=== PATIENT | female | born 1940 | race Hispanic/Latino ===

== ENCOUNTER 2017-03-13 18:18 | Emergency (ER) | payer MEDICARE, MEDICAID ==
[2017-03-13] MEDS ORDERED: EPINEPHrine 1 mg/ml (1:1000) Inj ONE (18:22)
--- NOTE | 2017-03-13 18:27 | C.PDOC ---
Chief Complaint (Nursing): Cardiac Arrest Progress - Re-Evaluation Re-evaluation Note: 03/13/17 18:26 ASYSTOLE ON MONITOR. NO IMPROVE IN CONDITION SINCE ER ARRIVAL. TOD 1826 Disposition - Disposition Disposition: WITH WITHOUT AUTOPSY Disposition Time: 18:26 Condition: - Clinical Impression Clinical Impression: Respiratory failure, Cardiac arrest
--- NOTE | 2017-03-13 18:32 | C.PDOC ---
History Of Present Illness 76 y/o female brought to ED by EMS from group home status post cardiac arrest. Upon arrival of EMS and was in respiratory distress, increased respiratory distress became bradycardic and was intubated. Patient went into cardiac arrest again was given Epi on field, was paced and shocked and went into PEA. As per EMS patient been on PEA since 1800. Chief Complaint (Nursing): Cardiac Arrest History Per: EMS Reason For Code Blue: Full Arrest Circumstances: Brought To ED By EMS Arrest Witnessed By: By-stander, Nurse CPR Initiated Prior To MD Arrival?: Yes Treatment Initiated Prior To MD Arrival: Yes: CPR, Intubation Medications Given Prior To MD Arrival: Yes: Epinephrine Past Medical History Reviewed: Historical Data, Nursing Documentation, Vital Signs Vital Signs: Last Vital Signs Temp 96 F L 03/13/17 18:18 Pulse Resp BP Pulse Ox - Medical History PMH: No Chronic Diseases Surgical History: No Surg Hx Family History: States: No Known Family Hx Review Of Systems Review Of Systems: ROS cannot be obtained secondary to pt's inabilty to answer questions. Physical Exam - Physical Exam Appears: Other (Unresponsive) Skin: Warm, Dry, No Rash Head: Atraumatic Eye(s): bilateral: Other (unreactive) Lips: Normal Appearing Throat: Other (Patient intubated with prefuse bloody tube) Neck: Trachea Midline Chest: Symmetrical Cardiovascular: No Rhythm Regular, No Rhythm Irregular, Other (ASYSTOLE) Respiratory: Normal Breath Sounds (intubated), Other (NO SPONT BREATHING) Extremity: Other (B/L BKA) Pulses: Left Femoral: Absent (PALP PULSE W JOSE ANTONIO, NO SPONT PULSE) Pain Response: No Response To Pain ED Course And Treatment Progress Note: 03/13/17 18:26. ASYSTOLE ON MONITOR. NO IMPROVE IN CONDITION SINCE ER ARRIVAL. TOD 1825 Progress - Re-Evaluation Re-evaluation Note: 03/13/17 18:49 case #[id number] Medical Decision Making Medical Decision Making: At ED patient arrived in PEA, as per EMS patient been in PEA since 1800 See code sheet Time of called: 1825 Disposition - Disposition Disposition: WITH WITHOUT AUTOPSY Disposition Time: 18:26 Condition: Forms: [employer] (Swedish) - Clinical Impression Clinical Impression: Respiratory failure, Cardiac arrest - Scribe Statement The provider has reviewed the documentation as recorded by the Scribe Barbra Huynh All medical record entries made by the Bashiribtano were at my direction and personally dictated by me. I have reviewed the chart and agree that the record accurately reflects my personal performance of the history, physical exam, medical decision making, and the department course for this patient. I have also personally directed, reviewed, and agree with the discharge instructions and disposition.
[2017-03-13 18:45] VITALS: TEMP 96
== END 2017-03-13 20:24 ==
LOC: C.ER 18:18
DX: J96.90 Respiratory failure, unspecified, unspecified whether with hypoxia or hypercapnia (principal); I46.9 Cardiac arrest, cause unspecified
CPT/HCPCS: 99285; J0171